=== PATIENT | female | born 1990 | race Caucasian/White ===

== ENCOUNTER 2019-06-06 00:54 | Emergency (ER) | payer MEDICAID, SELFPAY ==
[2019-06-06 01:07] VITALS: BP 113/78; PULSE 79; RESP 14; TEMP 36.7; O2SAT 99
--- NOTE | 2019-06-06 01:16 | ED.PREGNANCY ---
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 Patient states she developed cramping pain 2 hours ago. She reports her pain is worse with sitting and walking , and her pain radiates to her back. She denies vaginal bleeding, vaginal discharge, fever, chills, dysuria or hematuria. She took tylenol 325 mg 2 hours ago. She states she had OB ultrasound 1 week ago at [facility] that shows IUP And heart beat. She reports nausea but no vomiting. She rates her pain 5/10. MD Complaint: contractions Pain Consistency: constant Quality: Cramping Related Data Allergies Allergy/AdvReac Type Severity Reaction Status Date / Time No Known Allergies Allergy Unverified 06/06/19 01:20 Review of Systems Review of Systems: All systems reviewed & are unremarkable except as noted in HPI and below Constitutional: Constitutional: Denies chills, Denies fever(s) and Denies weakness Gastrointestinal: Gastrointestinal: Reports abdominal pain, Denies bloating, Denies constipation, Denies diarrhea, Reports nausea and Denies vomiting Genitourinary: Genitourinary: Denies abnormal vaginal bleeding, Denies hematuria, Denies dysuria, Denies flank pain, Denies urinary incontinence and Denies vaginal discharge [facility] Surgical History Surgical History (Updated 06/06/19 @ 01:19 by Yesenia Zapien MD) Hx of appendectomy Exam Const: General: alert Nutritional Appearance: thin Orientation/consciousness: patient oriented x3 Eyes: EOM: EOMs intact bilaterally Chest: Chest palpation & inspection: normal inspection of the chest Resp: Effort & Inspection: normal respiratory effort Auscultation: clear to auscultation bilaterally Cardio: Rate: regular rate Rhythm: regular rhythm Heart sounds: no murmurs GI: GI Palp: Yes Soft to palpation, Yes Tenderness to palpation present (GI) (suprapubic), No Guarding due to palpation present (GI) and No Rigid due to palpation Auscultation: normal bowel sounds : General: Yes no CVA tenderness Back/Spine/Pelvis: Back: no CVA tenderness Skin: General skin exam: normal color Rashes: no rashes Neuro: General: patient oriented x3 and moves all extremities Course Reevaluation(s) Reevaluation #1: Patient reports abdominal pain resolved after IV tylenol. I performed bedside ultrasound which shows good movement and good heart rate. She will be treated with UTI on pelvic rest . Date: 06/06/19 Time: 02:19 Consultations Consultation #1: I have discussed with patient's OB Dr. Smith . He agrees with discharge and management with treatmant of UTI. Date: 06/06/19 Time: 02:19 Vital Signs Vital signs: Vital Signs Temperature 98.1 F 06/06/19 01:07 Pulse Rate 79 06/06/19 01:07 Respiratory Rate 14 06/06/19 01:07 Blood Pressure 113/78 06/06/19 01:07 Pulse Oximetry 99 06/06/19 01:07 Temperature 98.2 F 06/06/19 02:34 Pulse Rate 80 06/06/19 02:34 Respiratory Rate 17 06/06/19 02:34 Blood Pressure 115/67 06/06/19 02:34 Pulse Oximetry 100 06/06/19 02:34 MDM - OB/Uterine Contractions Lab Data Result diagrams: 06/06/19 01:25 06/06/19 01:25 Labs: Lab Results 06/06/19 06/06/19 06/06/19 Range/Units 01:19 01:25 01:25 WBC 8.7 (4.5-10.0) K/mm3 RBC 4.16 L (4.2-5.4) M/mm3 Hgb 12.3 (12.0-15.0) g/dL Hct 37.2 (37.0-47.0) % MCV 89.4 (80-100) fl MCH 29.6 (26-34) pg MCHC 33.1 (32-36) g/dl RDW 12.1 (11.5-14.5) % Plt Count 181 (150-375) k/mm3 MPV 11.2 H (7.4-10.4) fl Immature Gran % (Auto) 0.3 (0-0.5) % Neut % (Auto) 77.1 H (45.5-73.1) % Lymph % (Auto) 14.7 L (18.3
[2019-06-06] MEDS: LACTATED RINGERS 1,000 ML 999 ML IV CONT (01:27)
[2019-06-06 01:30] LABS: Add Urine Microscopic? YES; Appearance Urine Cloudy (Clear); Bacteria Urine Trace /hpf; Bilirubin Urine Negative (Negative); Blood Urine 1+ (Negative); Color Urine Yellow (Yellow); Glucose Urine UA Negative (Negative); Ketones Urine Trace mg/dL (Negative); Leukocyte Esterase Ur 3+ LEU/UL (Negative); Mucus Urine Few /lpf; Nitrate Urine Negative (Negative); Protein Urine Negative (Negative); Specific Grav Ur 1.019 (1.001-1.035); Squamous Epithelial Cell Urine Many /hpf (Few); Urobilinogen Urine Negative mg/dL (<2.0); WBC Urine 21-30 /hpf
[2019-06-06 01:32] LABS: Basophils Percent Auto 0.2 % (0.2-1.2); Eosinophils Percent Auto 0.5 % (0-4.4); Hematocrit 37.2 % (37.0-47.0); Hemoglobin 12.3 g/dL (12.0-15.0); Immature Granulocyte Absolute 0.03 K/mm3 (0.00-0.031); Immature Granulocyte Percent A 0.3 % (0-0.5); Lymphocytes Absolute Auto 1.28 K/mm3 (0.9-3.2); Lymphocytes Percent Auto 14.7 % (18.3-44.2); Mean Corpuscular HGB Conc 33.1 g/dl (32-36); Mean Corpuscular Hemoglobin 29.6 pg (26-34); Mean Corpuscular Volume 89.4 fl (80-100); Mean Platelet Volume 11.2 fl (7.4-10.4); Monocytes Absolute Auto 0.6 K/mm3 (0.1-0.6); Monocytes Percent Auto 7.2 % (2.6-8.5); Neutrophils Absolute Auto 6.7 K/mm3 (1.3-6.7); Neutrophils Percent Auto 77.1 % (45.5-73.1); Platelet Count Result 181 k/mm3 (150-375); Red Blood Count 4.16 M/mm3 (4.2-5.4); Red Cell Distribution Width 12.1 % (11.5-14.5); White Blood Count 8.7 K/mm3 (4.5-10.0)
[2019-06-06 01:43] LABS: Albumin Level 3.8 g/dL (3.5-5.1); Alkaline Phosphatase 48 U/L (38-126); Aspartate Amino Transferase 18 U/L (14-36); Bilirubin,Total 0.3 mg/dL (0.2-1.3); Blood Urea Nitrogen 6 mg/dL (7-17); Calcium 9.3 mg/dL (8.4-10.2); Carbon Dioxide 24 mmol/L (22-30); Chloride 106 mmol/L (98-107); Estimated Glomerular Filt Rate > 60; Glucose 89 mg/dL (65-105); Sodium 136 mmol/L (137-145)
[2019-06-06 01:45] LABS: Alanine Aminotransferase < 6 U/L (4-35)
[2019-06-06 02:34] VITALS: BP 115/67; PULSE 80; RESP 17; TEMP 36.8; O2SAT 100
== END 2019-06-06 02:45 | disposition home or self-care (01) ==
PROVIDERS: Emergency Provider General Practice; PCP Obstetrics & Gynecology
DX: O26.892 Other specified pregnancy related conditions, second trimester (principal); R10.30 Lower abdominal pain, unspecified; O23.42 Unspecified infection of urinary tract in pregnancy, second trimester; Z3A.14 14 weeks gestation of pregnancy
CPT/HCPCS: 36415; 80053; 81001; 85025; 87086; 96361; 96365; 96375; 99284; J0131; J0696; J7120

== ENCOUNTER 2019-07-29 15:05 | Observation (INO) | payer OTHER, SELFPAY ==
[2019-07-29] VITALS (16 sets, daily range): BP systolic 89–107; BP diastolic 42–64; PULSE 74–96; BMI 19.3
--- NOTE | 2019-07-29 15:02 | PC.NURSE ---
pt to ob ob informed of patient arrival
[2019-07-29] MEDS: ONDANSETRON INJ 4 MG/2 ML VIAL IV PUSH (16:42)
[2019-07-29] MEDS: DEXTROSE 5%/LACTATED RINGERS 1,000 ML 1000 ML IV CONT (16:43)
[2019-07-29 16:52] LABS: Hematocrit 34.7 % (37.0-47.0); Hemoglobin 11.6 g/dL (12.0-15.0); Mean Corpuscular HGB Conc 33.4 g/dl (32-36); Mean Corpuscular Hemoglobin 29.7 pg (26-34); Mean Platelet Volume 11.6 fl (7.4-10.4); Platelet Count Result 227 k/mm3 (150-375); Red Cell Distribution Width 12.4 % (11.5-14.5); White Blood Count 8.4 K/mm3 (4.5-10.0)
[2019-07-29 16:58] LABS: Add Urine Microscopic? YES; Appearance Urine Cloudy (Clear); Bacteria Urine Trace /hpf; Bilirubin Urine Negative (Negative); Blood Urine 1+ (Negative); Color Urine Yellow (Yellow); Glucose Urine UA Negative (Negative); Ketones Urine Trace mg/dL (Negative); Leukocyte Esterase Ur 1+ LEU/UL (NEGATIVE); Mucus Urine Heavy /lpf; Nitrate Urine Negative (Negative); Protein Urine Negative (Negative); Specific Grav Ur 1.026 (1.001-1.035); Squamous Epithelial Cell Urine Many /hpf (Few); Urobilinogen Urine Negative mg/dL (<2.0)
[2019-07-29 17:10] LABS: Albumin Level 3.7 g/dL (3.5-5.1); Alkaline Phosphatase 65 U/L (38-126); Aspartate Amino Transferase 23 U/L (14-36); Bilirubin,Total 0.3 mg/dL (0.2-1.3); Blood Urea Nitrogen 7 mg/dL (7-17); Calcium 8.9 mg/dL (8.4-10.2); Carbon Dioxide 20 mmol/L (22-30); Chloride 107 mmol/L (98-107); Estimated Glomerular Filt Rate > 60; Glucose 77 mg/dL (65-105); Potassium 3.7 mmol/L (3.4-5.0); Sodium 135 mmol/L (137-145)
--- NOTE | 2019-07-29 17:17 | OBADM ---
This patient, Dedra Rios, admitted to the OB room OB Post 117 for observation. Patient/family oriented to hospital policies and general routines including ID bracelet, bed and alarms, visiting hours, pain management, procedures, bathroom and other care routines, personal items, smoking policy, room service/diet, and visiting hours. Patient/Family are encouraged to report perceived risks to care and to ask questions if they do not understand what they are told or what they should do.
[2019-07-29 17:25] LABS: Alanine Aminotransferase < 6 U/L (4-35)
--- NOTE | 2019-08-21 08:07 | PM.OBTRLD ---
OB - Triage/Final Diagnosis Visit Information Date of evaluation: 07/29/19 Evaluation Laboratory results: Laboratory Tests 07/29/19 07/29/19 07/29/19 16:44 16:44 16:44 WBC 8.4 RBC 3.90 L Hgb 11.6 L Hct 34.7 L MCV 89.0 MCH 29.7 MCHC 33.4 RDW 12.4 Plt Count 227 MPV 11.6 H Sodium 135 L Potassium 3.7 Chloride 107 Carbon Dioxide 20 L BUN 7 Creatinine 0.40 L Estim Creat Clear Calc Not Reportable Estimated GFR > 60 Glucose 77 Calcium 8.9 Total Bilirubin 0.3 AST 23 ALT < 6 Alkaline Phosphatase 65 Total Protein 7.0 Albumin 3.7 Urine Color Yellow Urine Appearance Cloudy H Urine pH 5.0 Ur Specific [place] 1.026 Urine Protein Negative Urine Glucose (UA) Negative Urine Ketones Trace Ur Blood (Man) 1+ H Urine Nitrate Negative Urine Bilirubin Negative Urine Urobilinogen Negative Ur Leukocyte Esterase 1+ H Urine RBC 3-5 H Urine WBC 7-9 H Ur Squamous Epith Cells Many H Urine Bacteria Trace Urine Mucus Heavy H Final Diagnosis (1) Threatened labor: Code(s): O47.00 - False labor before 37 completed weeks of gestation, unspecified trimester Status: Acute
== END 2019-07-29 19:50 | disposition home or self-care (01) ==
PROVIDERS: Admitting Provider Obstetrics & Gynecology; Visit Provider Obstetrics & Gynecology
DX: O47.02 False labor before 37 completed weeks of gestation, second trimester (principal); Z3A.22 22 weeks gestation of pregnancy
CPT/HCPCS: 36415; 80053; 81001; 85027; 87086; 87088; 96361; 96374; G0378; G0379; J2405; J7121

== ENCOUNTER 2019-11-16 19:30 | Inpatient (IN) | payer OTHER, SELFPAY ==
[2019-11-17] VITALS (89 sets, daily range): BP systolic 89–129; BP diastolic 46–80; PULSE 70–107; RESP 12–16; TEMP 36.6–37.4; O2SAT 94–100; BMI 18.3
[2019-11-17] MEDS: LACTATED RINGERS 1,000 ML 125 ML IV CONT ×2 (00:23→01:28)
[2019-11-17 00:27] LABS: Basophils Percent Auto 0.2 % (0.2-1.2); Eosinophils Percent Auto 0.3 % (0-4.4); Hematocrit 32.6 % (37.0-47.0); Hemoglobin 10.2 g/dL (12.0-15.0); Immature Granulocyte Absolute 0.08 K/mm3 (0.00-0.031); Immature Granulocyte Percent A 0.8 % (0-0.5); Lymphocytes Percent Auto 23.1 % (18.3-44.2); Mean Corpuscular HGB Conc 31.3 g/dl (32-36); Mean Corpuscular Hemoglobin 25.1 pg (26-34); Mean Corpuscular Volume 80.1 fl (80-100); Mean Platelet Volume 11.5 fl (7.4-10.4); Monocytes Percent Auto 10.1 % (2.6-8.5); Neutrophils Absolute Auto 6.2 K/mm3 (1.3-6.7); Neutrophils Percent Auto 65.5 % (45.5-73.1); Platelet Count Result 213 k/mm3 (150-375); Red Blood Count 4.07 M/mm3 (4.2-5.4); Red Cell Distribution Width 13.7 % (11.5-14.5); White Blood Count 9.5 K/mm3 (4.5-10.0)
--- NOTE | 2019-11-17 00:28 | LDADM ---
This patient, Dedra Rios, was admitted to Labor/Delivery/Recovery 105 on 11/16/19 at 19:30. Plans for labor, pain management and were discussed with patient. Patient/family oriented to hospital policies and general routines including ID bracelet, bed and alarms, visiting hours, pain management, procedures, bathroom and other care routines, personal items, smoking policy, room service/diet and guest tray routines, security routines, and visiting hours. Patient/Family are encouraged to report perceived risks to care and to ask questions if they do not understand what they are told or what they should do. See OBIX for further documentation.
--- NOTE | 2019-11-17 01:43 | WPDANESEPPF ---
Anes - Initial Pre Proc Eval Date/Time: 11/17/19 01:43 Surgeon: Samy Smith MD Pre Op Diagnosis: Contractions Patient Data Age: 29 Gender: F Height: 5 ft 6 in Weight: 51.5 kg Last Vital Signs Temp 36.6 C 11/17/19 00:43 Pulse 86 11/17/19 01:42 BP 116/60 11/17/19 01:42 Pulse Ox 98 11/17/19 01:42 Allergies Allergy/AdvReac Type Severity Reaction Status Date / Time No Known Allergies Allergy Verified 11/01/19 14:32 Home Medications Medication Instructions Recorded Confirmed Type No Home Medications 11/17/19 11/17/19 History Laboratory Tests 11/17/19 11/17/19 00:22 00:22 WBC 9.5 K/mm3 K/mm3 (4.5-10.0) RBC 4.07 M/mm3 L M/mm3 (4.2-5.4) Hgb 10.2 g/dL L g/dL (12.0-15.0) Hct 32.6 % L % (37.0-47.0) MCV 80.1 fl fl (80-100) MCH 25.1 pg L pg (26-34) MCHC 31.3 g/dl L g/dl (32-36) RDW 13.7 % % (11.5-14.5) Plt Count 213 k/mm3 k/mm3 (150-375) MPV 11.5 fl H fl (7.4-10.4) Immature Gran % (Auto) 0.8 % H % (0-0.5) Neut % (Auto) 65.5 % % (45.5-73.1) Lymph % (Auto) 23.1 % % (18.3-44.2) [place] % (Auto) 10.1 % H % (2.6-8.5) Eos % (Auto) 0.3 % % (0-4.4) Baso % (Auto) 0.2 % % (0.2-1.2) Lymph # (Auto) 2.20 K/mm3 K/mm3 (0.9-3.2) [place] # (Auto) 1.0 K/mm3 H K/mm3 (0.1-0.6) Eos # (Auto) 0.0 K/mm3 K/mm3 (0-0.3) Baso # (Auto) 0.0 K/mm3 K/mm3 (0.0-0.1) Abs Immat Gran (auto) 0.08 K/mm3 H K/mm3 (0.00-0.031) Absolute Neuts (auto) 6.2 K/mm3 K/mm3 (1.3-6.7) Absolute Nucleated RBC 0.0 K/mm3 K/mm3 (0.0-0.012) Nucleated RBC % 0.0 % % (0.0-0.2) RPR Pending Patient hx anesthesia problems: none Family hx anesthesia problems: none PMFSH Past Medical History Medical History Anxiety Surgical History Surgical History Hx of appendectomy Family History Family History Mother Brittani's disease Son Seizure Asthma Sibling Tachycardia Social History Social History Smoking status: Never smoker Second hand tobacco smoke exposure: No Substance use: never Spiritual care concerns: No Anes - Eval Final PreProcedure Day of Procedure 11/17/19 01:43 Patient weight: thin Heart: regular rate and rhythm Lungs: clear to auscultation Neurological: alert and oriented ASA classification: II Emergent: no Anesthetic plan: proceed Anesthesia type and monitoring: regional epidural and standard monitoring Informed Consent: The patient's anesthetic plan and its attendant risks and benefits were discussed with the patient/family/POA. Questions were solicited and answers provided to the satisfaction of the patient/family/POA.
[2019-11-17] MEDS: ONDANSETRON INJ 4 MG/2 ML VIAL IV PUSH (02:18)
[2019-11-17] MEDS: ACETAMINOPHEN 325 MG TABLET 650 MG PO (02:21)
[2019-11-17] MEDS: CALCIUM CARBONATE (TUMS) 500 MG (200 MG ELEMENTAL) PO (03:39)
--- NOTE | 2019-11-17 07:39 | WPDOBADMIT ---
Obstetrics - Admit Note Admission Note: record reviewed. No pertinent additions to the history and/or any subsequent changes in the physical findings that are not consistent with the expected course of the were found. Pt arrived in labor SVE 4-5/80/-2, AROM minimal amount of odorless fluid, bloody show Additions to the history and/or subsequent changes in the physical findings follow. None.
[2019-11-17] MEDS: FAMOTIDINE 20 MG/2 ML VIAL IV PUSH (07:57)
[2019-11-17] MEDS: OXYTOCIN 30 UNITS/NS 500 ML 30 UNITS/500 ML BAG IV CONT (09:09)
--- NOTE | 2019-11-17 10:22 | P.PCNOB_ITS ---
OB - Delivery Note Procedure Delivery date: 11/17/19 Procedure: Vaginal . Intrapartal events: None Induction method: AROM and per pitocin protocol Delivery monitor: external FHT and external uterine Route of delivery: Episiotomy description: None Laceration description: None Specimen: No Estimated blood loss (mL): 200 Anesthesia type: Epidural Disposition: other () [place] Baby Date of : 11/17/19 Time of : 10:08 Weeks of gestation at delivery: 38 gender: Male Weight (pounds): 6 Weight (ounces): 0 presentation: vertex position: Right Occiput Posterior Placenta delivery description: Spontaneous cord vessel description: 3 Vessels score one minute: 8 score five minutes: 9 Narrative: Mom and baby skin to skin in stablel condition.
[2019-11-17] MEDS: OXYTOCIN 30 UNITS/NS 500 ML 30 UNITS/500 ML BAG 125 UNITS IV CONT (10:50)
[2019-11-17 11:13] LABS: Rapid Plasma Reagin Non-Reactive (NonReactive)
[2019-11-17] MEDS: IBUPROFEN 600 MG TABLET PO ×3 (11:45→23:12)
--- NOTE | 2019-11-17 13:14 | P.PNAN_ITS ---
Anes - Eval Final PreProcedure Day of Procedure 11/17/19 13:14 Patient weight: normal Heart: regular rate and rhythm Lungs: clear to auscultation Airway: Mallampati scale class 1 Neurological: alert and oriented Last oral intake: 2 hours ASA classification: II Emergent: no Anesthetic plan: proceed Anesthesia type and monitoring: regional epidural and standard monitoring Informed Consent: The patient's anesthetic plan and its attendant risks and b enefits were discussed with the patient/family/POA. Questions were solicited and answers provided to the satisfaction of the patient/family/POA.
[2019-11-17] MEDS: LACTATED RINGERS 1,000 ML 30 ML IV CONT (13:24)
--- NOTE | 2019-11-17 14:22 | WPDHPUPDATE1 ---
History and Physical Update Update Date/Time: 11/17/19 14:22 This patient is post and desired sterilization. We have agreed to PP Tubal Ligation. She understand the risk, benefit and alternatives. She has completed the informed consent process and is ready to proceed. History and Physical has been reviewed, including an updated exam of the patient. There are NO changes in the patient's condition. Risks, benefits, and alternatives have been discussed and questions answered. Patient agrees to proceed with procedure.
--- NOTE | 2019-11-17 14:58 | PM.PROC ---
Procedure Note - Detailed Date of procedure: 11/17/19 Pre-op diagnosis: Contractions Unwanted fertility, term delivered Post-op diagnosis: same Procedure performed: tubal ligation Description of procedure: The patient was taken to the operating room. She was prepped and draped in the dorsal spine position. A curvilinear infraumbilical incision was made with the scalpel. The fascia superiorly inferiorly was grasped with Allis clamps. The fascia was transected Metzenbaum scissors. The preperitoneal fat was dissected bluntly the peritoneal cavity was entered bluntly. The fascial incision was extended laterally with Metzenbaum scissors. The fallopian tubes was palpated and dressed. It was brought to the abdominal incision. It was grasped with a [place] clamp. This was in the ampullary region and a window was made in the broad ligament with cautery. The proximal distal ends of the skeletonized tube were ligated with Vicryl. Segment of ligated tube was resected with Metzenbaum scissors. The proximal distal ends of the tube were cauterized. When the tube was hemostatic that was lab to fall back into the abdomen. The tube on the contralateral side was ligated in identical fashion. The fascia was closed with an 0 Vicryl running fashion. Subcutaneous tissue was irrigated. Blood. The cauterized. Skin was closed subcuticular 4 Monocryl. It was covered with Dermabond. Sponge lap and needle counts were correct. The patient was taken the recovery room stable condition. Anesthesia: GETA Surgeon: Samy Smith MD Estimated blood loss (mL): 5 Drains: No Packing: No Pathology: yes Complications: No immediate complications Condition: stable Disposition: floor Findings: Normal appearing maternal anatomy
[2019-11-17] MEDS: HYDROcodone/acetaminophen (*CRX) 10-325 MG TABLET 1 TAB PO (19:05)
[2019-11-17] MEDS: SIMETHICONE 80 MG TAB.CHEW PO (23:12)
[2019-11-18] MEDS: HYDROcodone/acetaminophen (*CRX) 10-325 MG TABLET 1 TAB PO ×3 (01:00→15:16)
[2019-11-18] MEDS: IBUPROFEN 600 MG TABLET PO ×2 (05:01→13:10)
[2019-11-18 05:27] LABS: Hematocrit 29.2 % (37.0-47.0)
[2019-11-18 08:30] VITALS: BP 116/77; PULSE 72; RESP 20; TEMP 36.7; O2SAT 98
[2019-11-18] MEDS: POLYSACCHARIDE IRON COMPLEX 150 MG CAPSULE PO (08:49)
[2019-11-18] MEDS: MULTIVIT/MIN/PREN/FOL AC/IRON TABLET 1 TAB PO (08:50)
[2019-11-18] MEDS: DOCUSATE SODIUM 100 MG CAPSULE PO (08:50)
--- NOTE | 2019-11-18 10:24 | PM.OBPNVD ---
OB - PN: Subj Subjective Date/time seen: 11/18/19 10:24 Patient comments: no complaints baby status: doing well OB - PN: Obj Data Labs CBC & Chem 7: 11/18/19 05:00 Labs: Laboratory Results - last 24 hr 11/17/19 11/18/19 00:22 05:00 Hgb 9.0 L Hct 29.2 L RPR Non-reactive OB - PN A/P Plan day: 1 Plan: routine care Comments: Desires d/c today. RTC in 1 week for post op. Time Spent With Patient Time: Total time spent is greater than 50% in coordination of care (as documented) at patient's floor/unit and/or counseling patient: Time with patient: less than 15 minutes Review of Systems Review of Systems: All systems reviewed & are unremarkable except as noted in HPI and below Exam Narrative: Exam Narrative: Fundus firm and flow controlled. No lower ext edema, pain, warmth, or tenderness. Const: General: comfortable Resp: Effort & Inspection: normal respiratory effort Cardio: Rate: regular rate GI: Auscultation: normal bowel sounds Psych: Appearance: grossly normal Affect: normal affect Attitude: cooperative Judgement: Good judgement present (Psych)
--- NOTE | 2019-11-18 10:50 | WPDANLDPN2 ---
Anes-Prog Note L&D Date/Time: 11/18/19 10:50 Comfortable throughout: labor Neuraxial method: epidural Epidural/Spinal procedure site: clean & non-tender Neuro status: Neuro function grossly intact. Cardiovascular status: normal Respiratory status: normal Airway patency: baseline Mental status: baseline Post-Op hydration status: normal Vital Signs: Last Vital Signs Temp 36.7 C 11/17/19 19:51 Pulse 88 11/17/19 19:51 Resp 12 11/17/19 19:51 BP 114/69 11/17/19 19:51 Pulse Ox 97 11/17/19 15:50 Pain score (VAS): 0/0 Post-procedural complaints: none Patient feedback: Patient satisfied with anesthetic care.
--- NOTE | 2019-11-18 14:58 | PC.NURSE ---
Patient instructed on viewing the discharge video Mother & Baby Care, The First Two Weeks . Patient was given the opportunity and encouraged to ask questions. Patient verbalized understanding of information shared and has been given the mother/baby guide for home reference.
[2019-11-20 15:17] VITALS: BP 112/65; PULSE 78; RESP 20; TEMP 36.6; O2SAT 99
--- NOTE | 2019-12-10 20:17 | PM.OBDSVD ---
DS: Admitting Diagnosis Admitting Diagnosis Admitting Diagnosis: Contractions DS: Discharge Diagnosis Discharge Diagnosis (1) Term delivered: Code(s): O80 - Encounter for full-term uncomplicated delivery Status: Acute OB - DS: Summary OB Procedures : None OB Procedures Intrapartum: Spontaneous Vag Delivery OB Procedures: : P.P. tubal ligation Peripartum Data Delivery Method: Natural Vaginal Procedures: Procedures Operation Date: 11/17/19 14:00 Actual Procedures Side Surgeon p Post- Tubal Ligation Bilateral Samy Smith MD complications: none Time Spent with Patient Time attestation: Total time spent providing and/or coordinating discharge services: DS: Data Data Completed and Pending Completed studies during hospitalization: Pending at discharge 11/17/19 14:46 Surgical [PTH] Routine Discharge Plan Discharge Consulting providers: Bernadette Bose ; Mikaela Fam ; Jurgen Ortiz Discharging Clinician: Mikaela Fam Patient Disposition: Home, Self-Care Activity: pelvic rest Diet: regular Discharge Instructions: Education: Mom and Baby Guide Given to: Mother Follow-Up: Call your delivering provider's office for an appointment to be seen in: Call for appointment Mom and baby should come to the [facility] for the follow-up appointment. Appointment Date/Time: November 20, 2019 at 2:30 pm What to expect at your follow-up visit: Physical Assessment Call [phone] if you are unable to keep your appointment time. BREAST CARE: * Wear a snug supportive bra. * For engorgement discomfort: Breast Feeding: * Apply warm moist washcloths * Express milk as needed to relieve engorgement * Wear loose clothing * For sore nipples: * Identify correct latch-on * Apply warm moist washcloths before and after nursing * Air dry nipples after nursing * May apply Lansinoh cream to nipples ABDOMINAL INCISION: (if applicable) * Allow incision to air dry * Do NOT use lotions for powders on your incision * When showering, allow soap and water to run over the incision, but do not wash incision EPISIOTOMY/PERINEAL CARE: * Until bleeding stops, use your ghazal bottle after urinating * Change your pad frequently throughout the day * No tub baths until seen by your physician - You may shower ACTIVITY: * Rest as much as possible. * Do not exercise or lift anything heavier than your baby (such as laundry or other children.) * Avoid stairs or driving as much as possible. * Do not put anything into the vagina. No douching, tampons, or sexual activity until seen by physician. NOTIFY PHYSICIAN IF YOU HAVE ANY QUESTIONS OR IF ANY OF THE FOLLOWING SYMPTOMS OCCUR: * If your incision becomes red, swollen, or more painful than what you have experienced in the hospital. * If your vaginal bleeding becomes foul smelling. * If your vaginal bleeding becomes more heavy than a period or if your bleeding changes from pink to bright red. However, you may pass an occasional walnut-sized clot once or twice for the first week . * If you experience a sharp, shooting pain in you calves. * If you discover a hard, reddened area on your breast or if you experience flu-like symptoms. DIET: * Eat regular, well-balanced meals. * Drink plenty of fluids daily. If , drink to thirst. Patient Instructions: Antibiotic Form Stand Alone Forms: General Discharge Information Follow-up/Referrals: Mikaela Fam CNM [Certified Nurse Refining Machine Operator] - Discharge Medications: No Action dicloxacillin 500 mg capsule 500 mg PO Q6H 10 Days Qty: 40 RF: 0 Date of admission: 11/16/19 19:30 Primary Care Provider: PHYSICIAN,HOUSEMAID Admitting Provider: Samy Smith Attending physician on admission: Samy Smith
== END 2019-11-18 16:47 | disposition home or self-care (01) | DRG 541 ==
LOC: ANHLDR 11-17 12:43 → ANHOB2 11-17 17:39
PROVIDERS: Advanced Practice Midwife; Admitting Provider Obstetrics & Gynecology; Visit Provider Obstetrics & Gynecology
PROC: 0UB70ZZ Excision of Bilateral Fallopian Tubes, Open Approach (ICD-10-PCS; CPT 58605; principal; 2019-11-17 14:00)
DX: O80 Encounter for full-term uncomplicated delivery (principal); Z30.2 Encounter for sterilization; Z3A.38 38 weeks gestation of pregnancy; Z37.0 Single live birth
CPT/HCPCS: 36415; 85014; 85018; 85025; 86592; 86850; 86900; 86901; 88302; A9270; J2250; J2405; J2590; J2704; J2795; J3010; J7120

== ENCOUNTER 2019-12-08 16:45 | Emergency (ER) | payer OTHER, SELFPAY ==
[2019-12-08] VITALS (8 sets, daily range): BP systolic 91–115; BP diastolic 59–69; PULSE 88–138; RESP 12–25; TEMP 38.1–38.2; O2SAT 96–100
[2019-12-08] MEDS: KETOROLAC 30 MG/ML VIAL (*BKC) 15 MG IV PUSH (18:07)
[2019-12-08] MEDS: SODIUM CHLORIDE 0.9% IV 1,000 ML 999 ML IV CONT (18:07)
--- NOTE | 2019-12-08 18:09 | ED.FEVER ---
HPI - Fever General Chief Complaint: Fever Stated Complaint: L BREAST PAIN, FEVER, Time Seen by Provider: 12/08/19 17:00 Source: patient Mode of arrival: ambulatory Limitations: no limitations History of Present Illness HPI Narrative: This is a 29 year old female that presents to the ER for left breast pain and fever since this morning. Also reports redness to the breast. Reports she is currently breast feeding. Reports she is trying to still pump, but it is too painful. Related Data Allergies Allergy/AdvReac Type Severity Reaction Status Date / Time No Known Allergies Allergy Verified 12/08/19 17:24 Review of Systems Review of Systems: Narrative: CONSTITUTIONAL: Reports fever, chills SKIN: Reports redness BREAST: Reports pain and swelling All systems reviewed & are unremarkable except as noted in HPI and below PMFSH Past Medical History Medical History (Updated 12/08/19 @ 19:31 by Elaina Devries PA-C) Anxiety Surgical History Surgical History Hx of appendectomy Family History Family History Mother Brittani's disease Son Seizure Asthma Sibling Tachycardia Social History Social History Smoking status: Never smoker Second hand tobacco smoke exposure: No Substance use: never Spiritual care concerns: No Exam Narrative: Exam Narrative: GENERAL: Well-appearing, well-nourished, and in no acute distress. HEAD: Normocephalic, atraumatic. EYES: EOMI. CHEST: Clear to auscultation. No respiratory distress. No wheezes rales or rhonchi HEART: Regular rate and rhythm. No murmur heard. Normal peripheral pulses. EXTREMITIES: Normal range of motion. No edema. SKIN: Warm, dry, no rash. NEURO: No focal deficits. Alert and oriented x3. PSYCH: Normal mood and affect BREAST: Left breast larger than the right, tender to palpation with mild overlying redness Course Consultations Consultation #1: Spoke with Dr. Smith about patient and work-up will follow-up in clinic. Date: 12/08/19 Time: 19:28 Vital Signs Vital signs: Vital Signs Temperature 100.8 F H 12/08/19 16:45 Pulse Rate 138 H 10/16/20 16:45 Respiratory Rate 16 12/08/19 16:45 Blood Pressure 115/65 12/08/19 16:45 Pulse Oximetry 100 12/08/19 16:45 Temperature 100.5 F H 12/08/19 18:37 Pulse Rate 95 12/08/19 18:53 Respiratory Rate 18 12/08/19 18:53 Blood Pressure 107/69 12/08/19 18:00 Pulse Oximetry 96 12/08/19 18:53 MDM - Fever MDM Narrative Medical decision making narrative: Patient presents to the emergency department for left breast pain and swelling since this morning. Also reports fevers and redness. Febrile and tachycardic upon arrival, given IV fluids with normalization in heart rate. Patient also given antipyretics in the ED with improvement. Spoke with Dr. Smith about patient and work-up will follow-up in clinic. Patient will be started on oral antibiotics for mastitis. She is stable and felt appropriate for further outpatient evaluation. She was given warnings to return to the ER Critical Care Time Critical Care Time Critical Care Time: No Discharge Plan Discharge Clinical Impression: Mastitis Patient Disposition: Home, Self-Care Condition: Stable Instructions: Antibiotic Form, Mastitis (ED) Additional Instructions: Return to the emergency department for worsening symptoms, or any other concerns Take oral antibiotics as prescribed. Cool compresses to the area. Continue to express breastmilk. 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
[2019-12-08] MEDS: DICLOXACILLIN SODIUM 250 MG CAPSULE 500 MG PO (19:56)
== END 2019-12-08 20:00 | disposition home or self-care (01) ==
PROVIDERS: Emergency Provider Emergency Medicine
DX: N61.0 Mastitis without abscess (principal)
CPT/HCPCS: 96361; 96365; 96375; 99284; A9270; J0131; J1885; J7030